=== PATIENT | male | born 2000 | race Caucasian/White ===

== ENCOUNTER 2021-12-01 11:55 | Emergency (ER) | payer BC ==
[~2021-12-01] VITALS: Ht 185.4 cm; Wt 72.6 kg
--- NOTE | 2021-12-01 12:20 | NUR ---
THE PATIENT BIBS FOR C/O SORETHROAT X 3 DAYS. IN ROOM AIR AND DENIES SOB. RESPIRATION REGULAR AND UNLABORED. WILL CONTINUE TO MONITOR THE PATIENT.
--- NOTE | 2021-12-01 12:21 | NUR ---
TO ER 2 AWAITING MD RM,ROGERIO,NO DROOLING
[2021-12-01] MEDS ORDERED: DEXAMETHASONE SOD PHOSPHATE 10 MG/ML VIAL IM ONE (13:00)
[2021-12-01] MEDS ORDERED: DEXAMETHASONE SOD PHOSPHATE 10 MG/ML VIAL ONE (13:14)
--- NOTE | 2021-12-01 13:52 | NUR ---
STREPH SWAB AND COVID ANTIGEN SWABS DONE AND SENT TO THE LAB
[2021-12-01 14:17] LABS: MONOTEST NEGATIVE (NEGATIVE)
[2021-12-01] MEDS ORDERED: PENI500T PO (15:01)
[2021-12-01] MEDS ORDERED: BENZ1LOZ58 PO (15:01)
--- NOTE | 2021-12-01 15:13 | NUR ---
Patient discharged to home in stable condition. Written and verbal after care instructions given. Patient verbalizes understanding of instruction.
[2021-12-01 15:14] VITALS: BP 138/75
== END 2021-12-01 15:14 | disposition home or self-care (01) ==
LOC: ER 12:23
DX: J02.0 Streptococcal pharyngitis (principal); B95.0 Streptococcus, group A, as the cause of diseases classified elsewhere; Z20.822 Contact with and (suspected) exposure to COVID-19
CPT/HCPCS: 99283; 87426; 96372; 86308; 36415; 87880; J1100; C9803; 86403-TC